=== PATIENT | female | born 1980 | race Two or more races ===

== ENCOUNTER 2018-02-23 08:56 | Outpatient (CLI) | payer OTHER ==
[~2018-02-23 08:56] MED LIST: ALBUTEROL0.63 MG/3; BREO ELLIPTA 21 EACH IH; ZYNCOF 20-400120 ML PO
== END 2018-02-23 08:58 | disposition home or self-care (01) ==
LOC: MAMO-SONO 08:56
DX: N60.11 Diffuse cystic mastopathy of right breast (principal)

== ENCOUNTER 2018-12-06 06:36 | Inpatient (IN) | payer OTHER ==
[~2018-12-06] VITALS: Ht 149.9 cm; Wt 62.6 kg
== END 2018-12-09 08:24 | DRG 833 ==
LOC: OB/GYN 06:36
PROVIDERS: ADMIT Obstetrics & Gynecology
PROC: 4A0HXFZ Measurement of Products of Conception, Cardiac Rhythm, External Approach (ICD-10-PCS; principal; 2018-12-06)
DX: O24.414 Gestational diabetes mellitus in pregnancy, insulin controlled (principal); Z3A.25 25 weeks gestation of pregnancy
CPT/HCPCS: 240

== ENCOUNTER 2019-01-09 10:37 | Outpatient (CLI) | payer OTHER | END 2019-01-09 11:53 | disposition home or self-care (01) | LOC: NST 10:37 | DX: Z34.83 Encounter for supervision of other normal pregnancy, third trimester (principal) ==

== ENCOUNTER 2019-01-30 08:51 | Outpatient (CLI) | payer OTHER | END 2019-01-30 09:42 | disposition home or self-care (01) | LOC: NST 08:51 | DX: Z34.83 Encounter for supervision of other normal pregnancy, third trimester (principal) ==

== ENCOUNTER 2019-02-13 09:27 | Outpatient (CLI) | payer OTHER | END 2019-02-13 10:28 | disposition home or self-care (01) | LOC: NST 09:27 | DX: Z34.83 Encounter for supervision of other normal pregnancy, third trimester (principal) ==

== ENCOUNTER 2019-02-20 10:11 | Outpatient (CLI) | payer OTHER | END 2019-02-20 10:57 | disposition home or self-care (01) | LOC: NST 10:11 | DX: Z34.83 Encounter for supervision of other normal pregnancy, third trimester (principal) ==

== ENCOUNTER 2019-02-20 11:24 | Inpatient (IN) | payer OTHER ==
[~2019-02-20] VITALS: Ht 149.9 cm; Wt 66.2 kg
[2019-03-12] MEDS ORDERED: PRENATAL TABLE1 EAC1 PO (02:06)
[2019-03-12] MEDS ORDERED: HUMULIN R500 UNIT/2 SUBCUTANEO (02:08)
[2019-03-12] MEDS ORDERED: HUMULIN N100 UNIT/2 SUBCUTANEO ×2 (02:09→02:14)
== END 2019-03-15 10:49 | disposition home or self-care (01) | DRG 788 ==
LOC: OB/GYN 02-27 14:15 → LDR 03-12 01:00 → OB/GYN 03-12 01:20 → LDR 03-12 09:05 → OB/GYN 03-12 16:32
PROVIDERS: ADMIT Obstetrics & Gynecology
PROC: 3E033VJ Introduction of Other Hormone into Peripheral Vein, Percutaneous Approach (ICD-10-PCS; 2019-03-12)
PROC: 4A1HXCZ Monitoring of Products of Conception, Cardiac Rate, External Approach (ICD-10-PCS; 2019-03-12)
PROC: 10D00Z1 Extraction of Products of Conception, Low, Open Approach (ICD-10-PCS; principal; 2019-03-12 12:00)
DX: O82 Encounter for cesarean delivery without indication (principal); O62.0 Primary inadequate contractions; Z3A.39 39 weeks gestation of pregnancy; Z37.0 Single live birth

== ENCOUNTER 2019-02-27 09:13 | Outpatient (CLI) | payer OTHER | END 2019-02-27 10:06 | disposition home or self-care (01) | LOC: NST 09:13 | DX: Z34.83 Encounter for supervision of other normal pregnancy, third trimester (principal) ==

== ENCOUNTER 2019-03-06 09:53 | Outpatient (CLI) | payer OTHER | END 2019-03-06 10:45 | disposition home or self-care (01) | LOC: NST 09:53 | DX: Z34.83 Encounter for supervision of other normal pregnancy, third trimester (principal) ==

== ENCOUNTER 2019-08-12 04:37 | Emergency (ER) | payer OTHER ==
[~2019-08-12] VITALS: Ht 149.9 cm; Wt 55.8 kg
[~2019-08-12 04:37] MED LIST changes: +HUMULIN N100 UNIT/2 SUBCUTANEO; +HUMULIN R500 UNIT/2 SUBCUTANEO; +PRENATAL TABLE1 EAC1 PO
== END 2019-08-12 14:13 | disposition home or self-care (01) ==
LOC: ER 04:37
DX: N20.1 Calculus of ureter (principal); R10.31 Right lower quadrant pain

== ENCOUNTER 2020-06-10 10:22 | Outpatient (CLI) | payer OTHER | END 2020-06-10 10:34 | disposition home or self-care (01) | LOC: MAMO-SONO 10:22 | PROVIDERS: ATTEND Obstetrics & Gynecology | DX: Z12.31 Encounter for screening mammogram for malignant neoplasm of breast (principal); N63.10 Unspecified lump in the right breast, unspecified quadrant; N63.20 Unspecified lump in the left breast, unspecified quadrant ==

== ENCOUNTER → 2021-11-24 | Emergency (ER) | payer OTHER ==
[~2021-11-24] VITALS: Ht 149.9 cm; Wt 59.0 kg
== END | disposition home or self-care (01) ==
LOC: ER 12:39
DX: U07.1 COVID-19 (principal); J45.909 Unspecified asthma, uncomplicated; E11.9 Type 2 diabetes mellitus without complications; Z79.4 Long term (current) use of insulin

== ENCOUNTER 2022-08-11 18:10 | Emergency (ER) | payer OTHER ==
[~2022-08-11] VITALS: Ht 149.9 cm; Wt 59.4 kg
[2022-08-11] MEDS ORDERED: PROVENTIL HFA6.7 GM (19:31)
[2022-08-11] MEDS ORDERED: PREDNISONE20 MG (19:31)
[2022-08-11] MEDS ORDERED: BUDESONIDE0.5 MG/21 (19:31)
[2022-08-11] MEDS ORDERED: OBSTETRIX ONE 38-1-2 (19:32)
[2022-08-11] MEDS ORDERED: METFORMIN HCL500 M4 (19:32)
== END 2022-08-11 22:28 | disposition home or self-care (01) ==
LOC: ER 18:10
DX: Z33.1 Pregnant state, incidental (principal); J45.909 Unspecified asthma, uncomplicated; Z20.822 Contact with and (suspected) exposure to COVID-19

== ENCOUNTER 2022-08-13 16:19 | Inpatient (IN) | payer OTHER ==
[~2022-08-13] VITALS: Ht 121.9 cm; Wt 59.0 kg
[~2022-08-13 16:19] MED LIST changes: +BUDESONIDE0.5 MG/21; +METFORMIN HCL500 M4; +OBSTETRIX ONE 38-1-2; +PREDNISONE20 MG; +PROVENTIL HFA6.7 GM
[2022-08-14] MEDS ORDERED: QVAR REDIHALE10.6 G1 (08:18)
== END 2022-08-17 12:57 | disposition home or self-care (01) | DRG 833 ==
LOC: OB/GYN 16:19
PROVIDERS: ADMIT Obstetrics & Gynecology Maternal & Fetal Medicine; ATTEND Obstetrics & Gynecology Maternal & Fetal Medicine
PROC: 4A1HXCZ Monitoring of Products of Conception, Cardiac Rate, External Approach (ICD-10-PCS; principal; 2022-08-13)
PROC: 3E0F7GC Introduction of Other Therapeutic Substance into Respiratory Tract, Via Natural or Artificial Opening (ICD-10-PCS; 2022-08-13)
PROC: BY49ZZZ Ultrasonography of First Trimester, Single Fetus (ICD-10-PCS; 2022-08-17)
DX: O99.511 Diseases of the respiratory system complicating pregnancy, first trimester (principal); J45.909 Unspecified asthma, uncomplicated; Z20.822 Contact with and (suspected) exposure to COVID-19

== ENCOUNTER 2022-08-25 17:43 | Emergency (ER) | payer OTHER ==
[~2022-08-25] VITALS: Ht 154.9 cm; Wt 65.8 kg
[~2022-08-25 17:43] MED LIST changes: +QVAR REDIHALE10.6 G1
== END 2022-08-25 22:36 | disposition home or self-care (01) ==
LOC: ER 17:43
DX: O26.91 Pregnancy related conditions, unspecified, first trimester (principal); Z3A.14 14 weeks gestation of pregnancy; J44.9 Chronic obstructive pulmonary disease, unspecified; R07.89 Other chest pain

== ENCOUNTER 2022-12-31 09:08 | Outpatient (CLI) | payer OTHER | END 2022-12-31 09:57 | disposition home or self-care (01) | LOC: NST 09:08 | PROVIDERS: ATTEND Obstetrics & Gynecology Maternal & Fetal Medicine | DX: Z34.83 Encounter for supervision of other normal pregnancy, third trimester (principal) ==

== ENCOUNTER 2023-01-18 09:35 | Outpatient (CLI) | payer OTHER | END 2023-01-18 10:29 | disposition home or self-care (01) | LOC: NST 09:35 | PROVIDERS: ATTEND Obstetrics & Gynecology Maternal & Fetal Medicine | DX: Z34.83 Encounter for supervision of other normal pregnancy, third trimester (principal) ==

== ENCOUNTER 2023-02-04 10:11 | Outpatient (CLI) | payer OTHER | END 2023-02-04 12:25 | disposition home or self-care (01) | LOC: NST 10:11 | PROVIDERS: ATTEND Obstetrics & Gynecology Maternal & Fetal Medicine | DX: Z34.83 Encounter for supervision of other normal pregnancy, third trimester (principal) ==

== ENCOUNTER 2023-02-04 14:28 | Inpatient (IN) | payer OTHER ==
[~2023-02-04] VITALS: Ht 149.9 cm; Wt 2.7 kg
[2023-02-10] MEDS ORDERED: MONTELUKAST SOD10 MG (09:34)
[2023-02-10] MEDS ORDERED: SYMBICORT 16010.2 GM (09:35)
== END 2023-02-12 13:24 | disposition home or self-care (01) | DRG 788 ==
LOC: O/R 02-10 06:24 → SURG 02-10 13:15 → OB/GYN 02-10 13:16 → SURG 02-10 13:21 → OB/GYN 02-12 13:24
PROVIDERS: ADMIT Obstetrics & Gynecology; ATTEND Obstetrics & Gynecology
PROC: 4A1HXCZ Monitoring of Products of Conception, Cardiac Rate, External Approach (ICD-10-PCS; 2023-02-10)
PROC: 10D00Z1 Extraction of Products of Conception, Low, Open Approach (ICD-10-PCS; principal; 2023-02-10 14:15)
DX: O34.211 Maternal care for low transverse scar from previous cesarean delivery (principal); O24.420 Gestational diabetes mellitus in childbirth, diet controlled; Z3A.39 39 weeks gestation of pregnancy; Z37.0 Single live birth; Z20.822 Contact with and (suspected) exposure to COVID-19

== ENCOUNTER 2023-04-09 08:26 | Outpatient (CLI) | payer OTHER ==
[~2023-04-09 08:26] MED LIST changes: +MONTELUKAST SOD10 MG; +SYMBICORT 16010.2 GM
== END 2023-04-09 08:48 | disposition home or self-care (01) ==
LOC: MAMO-SONO 08:26
PROVIDERS: ATTEND Obstetrics & Gynecology
DX: N63.21 Unspecified lump in the left breast, upper outer quadrant (principal); Z12.31 Encounter for screening mammogram for malignant neoplasm of breast

== ENCOUNTER 2024-01-25 09:16 | Outpatient (CLI) | payer OTHER | END 2024-01-25 09:20 | disposition home or self-care (01) | LOC: SONOGRAMA 09:16 | PROVIDERS: ATTEND Internal Medicine Gastroenterology | DX: E63.8 Other specified nutritional deficiencies (principal); R16.1 Splenomegaly, not elsewhere classified ==

== ENCOUNTER 2024-03-02 08:54 | Outpatient (CLI) | payer OTHER | END 2024-03-02 09:17 | disposition home or self-care (01) | LOC: SONOGRAMA 08:54 | PROVIDERS: ATTEND Obstetrics & Gynecology | DX: N39.0 Urinary tract infection, site not specified (principal); D49.519 Neoplasm of unspecified behavior of unspecified kidney; N17.0 Acute kidney failure with tubular necrosis ==